=== PATIENT | female | born 1970 | race American Indian/Alaskan Native ===

== ENCOUNTER 2018-02-18 16:09 | Emergency (ER) | payer BC ==
[2018-02-18 16:38] VITALS: TEMP 98.2
--- NOTE | 2018-02-18 17:23 | RAD ---
PROCEDURE: Right Ankle Radiographs. HISTORY: ankle pain, posterior ankle COMPARISON: None FINDINGS: BONES: Normal. No fracture. JOINTS: Normal. No osteoarthritis. Ankle mortise maintained. Talar dome intact SOFT TISSUES: Normal. OTHER FINDINGS: None. IMPRESSION: Normal right ankle radiographs.
--- NOTE | 2018-02-18 18:44 | ED PDOC ---
Arrival/HPI - General Chief Complaint: Lower Extremity Problem/Injury Time Seen by Provider: 02/18/18 16:51 Historian: Patient - History of Present Illness Narrative History of Present Illness (Text): 02/18/18 20:00 47-year-old female presents today with a three-day history of right ankle pain. Patient states 3 days ago she hit the back of her ankle on the door. Patient states since then she's been having pain to the posterior aspect of the ankle. She denies numbness weakness or tingling in the extremity. Patient denies calf pain. Patient states she is unable to ambulate. She denies taking any medications for pain. Patient denies fevers or chills. Denies proximal fibular pain. No other complaints Time/Duration: Other (3 days) Quality: Aching Severity Level: 3 Past Medical History - Provider Review Nursing Documentation Reviewed: Yes - Travel History Have you recently traveled outside [place] w/in the past 3 mons?: No - Reproductive Menopause: Yes - Cardiac Hx Hypertension: Yes - Pulmonary Hx Asthma: Yes - Hematological/Oncological Hx Cancer: Yes (Multiple Myloma) - Psychiatric Hx Substance Use: No - Surgical History Other/Comment: Foot (R) Sx Family/Social History - Physician Review Nursing Documentation Reviewed: Yes Family/Social History: Unknown Family HX Smoking Status: Never Smoked Hx Alcohol Use: Yes Frequency of alcohol use: Socially Hx Substance Use: No Allergies/Home Meds Allergies/Adverse Reactions: Allergies No Known Allergies Allergy (Verified 02/18/18 16:38) Home Medications: Home Meds Medication Instructions Recorded Confirmed Losartan [Cozaar] 100 mg PO DAILY 02/18/18 02/18/18 amLODIPine [Norvasc] 10 mg PO DAILY 02/18/18 02/18/18 Review of Systems - Review of Systems Constitutional: absent: Fatigue, Fevers Respiratory: absent: SOB, Cough Cardiovascular: absent: Chest Pain, Palpitations Gastrointestinal: absent: Abdominal Pain, Nausea, Vomiting Genitourinary Female: absent: Dysuria, Frequency Musculoskeletal: Arthralgias (right ankle pain). absent: Back Pain, Neck Pain Psychiatric: absent: Anxiety, Depression Physical Exam Vital Signs Reviewed: Yes Vital Signs Temp Pulse Resp BP Pulse Ox 02/18/18 18:56 75 19 130/78 99 02/18/18 16:34 98.2 F 80 18 140/90 100 Temperature: Afebrile Blood Pressure: Normal Pulse: Regular Respiratory Rate: Normal Appearance: Positive for: Well-Appearing, Non-Toxic, Comfortable Pain Distress: None Mental Status: Positive for: Alert and Oriented X 3 - Systems Exam Head: Present: Atraumatic Mouth: Present: Moist Mucous Membranes Respiratory/Chest: Present: Clear to Auscultation Cardiovascular: Present: Regular Rate and Rhythm Lower Extremity: Present: Normal Inspection, NORMAL PULSES, Normal ROM, Tenderness (right ankle: + ttp over achilles tendon insertion site and achilles tendon; no erythema; no edema. full rom of ankle; sensation and distal pulses intact; negative mendieta test. no achilles void. no crepitus. ), Neurovascularly Intact, Capillary Refill < 2 s. No: CALF TENDERNESS, Swelling, Erythema, Deformity Neurological: Present: GCS=15, Speech Normal Skin: Present: Warm, Dry, Normal Color. No: Rashes Psychiatric: Present: Alert, Oriented x 3 Medical Decision Making ED Course and Treatment: 02/18/18 20:03 Patient nontoxic well-appearing in no distress with stable vital signs X-rays of the right ankle: No fracture as read by the radiologist Patient refused medications for pain Patient placed in short leg posterior splint, crutches given for ambulation. I discussed all results in depth with the patient advised to followup with the orthopedist within the next 2 days. Advised return if symptoms worsen persist or new symptoms develop i advised the patient that although the xrays show no fracture; there is still a possibility for ligamentous or tendon injury the patient must see the orthopedist for further evaluation. Patient was advised that she must follow-up with the orthopedist within the next 2 days. I've advised the patient that she should not go longer than 1-2 weeks without seeing the orthopedist due to the increased risk of complications with the splint in place. Patient verbalized understanding. Patient verbalizes understanding of discharge instructions and need for immediate followup. all aspects of this case were discussed the attending of record. Impression: Ankle pain Motrin every 6 hours as needed for pain Rest, ice, compression, elevation Use crutches for ambulation Followup with the orthopedist within the next 2 days Followup with primary care physician within the next 2 days Return if symptoms worsen persist or if new symptoms develop - RAD Interpretation Radiology Orders: 02/18/18 16:57 ANKLE RIGHT 3 VIEWS ROUTINE [RAD] Stat Procedures - Splinting Location: right ankle Hand-Made Type: fiberglass Splint: posterior short leg splint Pre-Proc Neuro Vasc Exam: normal Post-Proc Neuro Vasc Exam: normal Disposition/Present on Arrival - Present on Arrival Any Indicators Present on Arrival: No History of DVT/PE: No History of Uncontrolled Diabetes: No Urinary Catheter: No History of Decub. Ulcer: No History Surgical Site Infection Following: None - Disposition Have Diagnosis and Disposition been Completed?: Yes Diagnosis: Ankle pain Disposition: HOME/ ROUTINE Disposition Time: 18:37 Patient Plan: Discharge Condition: GOOD Additional Instructions: Motrin every 6 hours as needed for pain Rest, ice, compression, elevation Use crutches for ambulation Followup with the orthopedist within the next 2 days Followup with primary care physician within the next 2 days Return if symptoms worsen persist or if new symptoms develop Referrals: [facility] [place] [Outside] - Follow up with primary [facility] [place] [Outside] - Follow up with primary Jacky Tsai MD [Staff Provider] - Follow up with primary Ella Goodwin MD [Staff Provider] - Follow up with primary Forms: [email or web address] (Ukrainian), WORK NOTE
[2018-02-18 19:30] VITALS: BP 130/78; PULSE 75; RESP 19; O2SAT 99
== END 2018-02-18 18:56 | disposition home or self-care (01) ==
LOC: ED 16:09
DX: M25.571 Pain in right ankle and joints of right foot (principal); I10 Essential (primary) hypertension